=== PATIENT | male | born 1995 | race Caucasian/White ===

== ENCOUNTER 2019-02-20 03:56 | Emergency (ER) | payer OTHER ==
--- NOTE | 2019-02-20 05:02 | ED ---
Substance Abuse/Use - HPI Summary HPI Summary: This patient is a 23 year old male presenting to [facility] with a chief complaint of alcohol intoxication [employer]. The patient has a Hx of epilepsy and he vomited each time he attempted to take the medication due to the alcohol intoxication. The patient denies any seizures tonight. - History Of Current Complaint Chief Complaint: EDSubstanceAbuse Stated Complaint: "ETOH" PER EMS Time Seen by Provider: 02/20/19 04:35 Hx Obtained From: Patient, Family/[employer] Crewmember Onset/Duration of Drug/ETOH Abuse: Minutes Severity Initially: Mild Severity Currently: Mild Associated Signs And Symptoms: Nausea, Vomiting - Allergies/Home Medications Allergies/Adverse Reactions: Allergies Allergy/AdvReac Type Severity Reaction Status Date / Time No Known Allergies Allergy Verified 02/20/19 04:24 PMH/Surg Hx/FS Hx/Imm Hx Respiratory History: Denies: Hx Asthma Neurological History: Reports: Hx Seizures Infectious Disease History: No Infectious Disease History: Denies: Traveled Outside the [place] in Last 30 Days - Family History Known Family History: Negative: Blood Disorder - Social History Alcohol Use: Occasionally Substance Use Type: Reports: None Smoking Status (MU): Current Some Day Smoker Review of Systems Negative: Fever Positive: Vomiting, Nausea All Other Systems Reviewed And Are Negative: Yes Physical Exam - Summary Physical Exam Summary: VITAL SIGNS: Reviewed. GENERAL: Patient is a well-developed and nourished MALE who is lying comfortable in the stretcher. Patient is not in any acute respiratory distress. HEAD AND FACE: No signs of trauma. No ecchymosis, hematomas or skull depressions. No sinus tenderness. EYES: PERRLA, EOMI x 2, No injected conjunctiva, no nystagmus. EARS: Hearing grossly intact. Ear canals and tympanic membranes are within normal limits. MOUTH: Oropharynx within normal limits. NECK: Supple, trachea is midline, no adenopathy, no JVD, no carotid bruit, no c- spine tenderness, neck with full ROM. CHEST: Symmetric, no tenderness at palpation LUNGS: Clear to auscultation bilaterally. No wheezing or crackles. CVS: Regular rate and rhythm, S1 and S2 present, no murmurs or gallops appreciated. ABDOMEN: Soft, non-tender. No signs of distention. No rebound no guarding, and no masses palpated. Bowel sounds are normal. EXTREMITIES: FROM in all major joints, no edema, no cyanosis or clubbing. NEURO: Alert and oriented x 3. No acute neurological deficits. Speech is normal and follows commands. Arousable. SKIN: Dry and warm Triage Information Reviewed: Yes Vital Signs On Initial Exam: Initial Vitals Temp Pulse Resp BP Pulse Ox 98.1 F 87 18 140/85 95 02/20/19 04:18 02/20/19 04:18 02/20/19 04:18 02/20/19 04:18 02/20/19 04:18 Vital Signs Reviewed: Yes Diagnostics - Vital Signs Vital Signs Temp Pulse Resp BP Pulse Ox 02/20/19 04:28 88 145/75 96 02/20/19 04:18 98.1 F 87 18 140/85 95 - Laboratory Lab Statement: Any lab studies that have been ordered have been reviewed, and results considered in the medical decision making process. Course/Dx - Course Course Of Treatment: This patient is a 23 year old male presenting to [facility] with a chief complaint of alcohol intoxication [employer]. The patient has a Hx of epilepsy and he vomited each time he attempted to take the medication due to the alcohol intoxication. The patient was able to take his pills and became sober. A plan for discharge was discussed with the patient and he was agreeable with this plan. - Diagnoses Provider Diagnoses: Alcohol intoxication Discharge - Sign-Out/Discharge Documenting (check all that apply): Patient Departure - Discharge Patient Received Moderate/Deep Sedation with Procedure: No - Discharge Plan Condition: Stable Disposition: HOME Patient Education Materials: Alcohol Intoxication (ED) Referrals: Alexandra Cortez, PURCHASING OFFICER [Primary Care Provider] - Additional Instructions: Return to ED with any new or worsening symptoms. - Billing Disposition and Condition Condition: STABLE Disposition: Home - Attestation Statements Document Initiated by Bob: Yes Documenting Scribe: Oniel Schultz Provider For Whom Bob is Documenting (Include Credential): Yosi Awan MD Scribe Attestation: Oniel Kim scribed for Yosi Awan MD on 02/20/19 at 2024. Scribe Documentation Reviewed: Yes Provider Attestation: The documentation as recorded by the Oniel jacobson accurately reflects the service I personally performed and the decisions made by me, Yosi Awan MD Status of Scribe Document: Viewed
[2019-02-20 07:42] VITALS: BP 137/74
== END 2019-02-20 07:38 | disposition home or self-care (01) ==
LOC: ED 03:56
DX: F10.129 Alcohol abuse with intoxication, unspecified (principal); Y90.9 Presence of alcohol in blood, level not specified; G40.909 Epilepsy, unspecified, not intractable, without status epilepticus; F17.210 Nicotine dependence, cigarettes, uncomplicated
CPT/HCPCS: 99284